=== PATIENT | female | born 1980 | race Caucasian/White ===

== ENCOUNTER 2017-11-07 20:58 | Inpatient (IN) | payer OTHER ==
[~2017-11-07] VITALS: Ht 162.6 cm; Wt 82.7 kg
[2017-11-07] MEDS: D5%-LACTATED RINGERS 1,000 ML IV SCH (08:15)
[2017-11-07] MEDS ORDERED: OXYTOCIN 30U/ 0.9% NaCL 500ML 500 ML IV ONE (21:02)
[2017-11-07] MEDS ORDERED: OXYTOCIN 30U/ 0.9% NaCL 500ML 500 ML IV PRN (21:02)
[2017-11-07] MEDS ORDERED: OXYTOCIN 30U/ 0.9% NaCL 500ML 500 ML ONE (21:13)
[2017-11-07] MEDS ORDERED: MISOPROSTOL 200 MCG TABLET ONE (21:13)
[2017-11-07] MEDS ORDERED: FENTANYL PF 100 MCG/2ML IV PRN (21:30)
[2017-11-07] MEDS ORDERED: SODIUM CITRATE/CITRIC ACID 30 ML UDC PO PRN (21:30)
[2017-11-07] MEDS ORDERED: TERBUTALINE 1 MG/ML, 1ML IVPush PRN ×2 (21:30)
[2017-11-07] MEDS ORDERED: METOCLOPRAMIDE 5 MG/ML, 2ML IVPush PRN (21:30)
[2017-11-07] MEDS ORDERED: FENTANYL PF 100 MCG/2ML IVPush PRN (21:30)
[2017-11-07] MEDS: LACTATED RINGERS 1,000 ML IV SCH (22:05)
[2017-11-07 22:51] LABS: BASOPHILS # (AUTO) 0.05 x10^3/uL (0-0.1); BASOPHILS % (AUTO) 0 % (0-1); EOSINOPHILS # (AUTO) 0.05 x10^3/uL (0-0.4); EOSINOPHILS % (AUTO) 0 % (1-7); LYMPHOCYTES # (AUTO) 1.89 x10^3/uL (1-3.4); LYMPHOCYTES % (AUTO) 11 % (22-44); MD NO; MEAN CORPUSCULAR HGB CONC 34.8 g/dL (32.4-35.8); MEAN CORPUSCULAR VOLUME 100.5 fL (80-100); MEAN PLATELET VOLUME 7.8 fL (7.4-10.4); MONOCYTES # (AUTO) 1.03 x10^3/uL (0.2-0.8); MONOCYTES % (AUTO) 6 % (2-9); NEUTROPHILS # (AUTO) 13.58 x10^3/uL (1.8-6.8); NEUTROPHILS % (AUTO) 82 % (42-75); PLATELET COUNT 235 x10^3/uL (130-400)
[2017-11-07] MEDS ORDERED: NEWBORN KIT ONE (23:58)
[2017-11-08] MEDS: LACTATED RINGERS 1,000 ML IV SCH ×4 (00:26→21:02)
[2017-11-08] MEDS ORDERED: FENTANYL/BUPIV./NS/PF 250 ML EPIDCONT SCH (02:04)
[2017-11-08] MEDS ORDERED: LACTATED RINGERS 1,000 ML IVBOLUS PRN (02:30)
[2017-11-08] MEDS ORDERED: FENTANYL PF 500 MCG, BUPIVACAINE/PF 0.5%, 30ML 62.5 ML in SODIUM CHLORIDE 0.9% 177.5 ML EPIDCONT SCH (02:30)
[2017-11-08] MEDS ORDERED: BUPIVACAINE 0.25% ONE (02:38)
[2017-11-08] MEDS ORDERED: ONDANSETRON 2MG/ML, 2ML ONE ×2 (04:27→19:57)
[2017-11-08] MEDS: ONDANSETRON 2MG/ML, 2ML IVPush PRN ×2 (04:30→19:58)
[2017-11-08] MEDS ORDERED: CALCIUM CARBONATE 500 MG TAB.CHEW ONE ×2 (04:37→15:44)
[2017-11-08] MEDS: CALCIUM CARBONATE 500 MG TAB.CHEW PO PRN ×2 (04:39→15:45)
[2017-11-08] MEDS: D5%-LACTATED RINGERS 1,000 ML IV SCH ×2 (05:02→13:02)
[2017-11-08] MEDS ORDERED: OXYTOCIN 30U/ 0.9% NaCL 500ML 500 ML ONE (14:09)
[2017-11-08] MEDS ORDERED: MISOPROSTOL 200 MCG TABLET ONE (22:28)
[2017-11-09] MEDS: LACTATED RINGERS 1,000 ML IV SCH ×4 (00:28→15:25)
[2017-11-09] MEDS ORDERED: SODIUM CITRATE/CITRIC ACID 30 ML UDC ONE ×2 (04:34→05:31)
[2017-11-09] MEDS ORDERED: METOCLOPRAMIDE 5 MG/ML, 2ML ONE ×2 (04:34→05:31)
[2017-11-09] MEDS ORDERED: LACTATED RINGERS 1,000 ML IV SCH ×2 (05:25→06:46)
[2017-11-09] MEDS ORDERED: WATER-INJECTION,STERILE 10 ML IV ONE (05:29)
[2017-11-09] MEDS ORDERED: CEFAZOLIN 1,000 MG ONE (05:29)
[2017-11-09] MEDS ORDERED: ONDANSETRON 2MG/ML, 2ML ONE (05:29)
[2017-11-09] MEDS ORDERED: OXYTOCIN 10 UNITS/ML, 1ML ONE (05:29)
[2017-11-09] MEDS ORDERED: KETOROLAC 30 MG/1 ML ONE (05:29)
[2017-11-09] MEDS ORDERED: DEXAMETHASONE 4 MG/ML, 1ML ONE (05:29)
[2017-11-09] MEDS ORDERED: morphine SULFATE 10 MG/ML, 1ML IVPush PRN ×2 (05:30)
[2017-11-09] MEDS ORDERED: METHYLERGONOVINE 0.2 MG/ML IM PRN (05:30)
[2017-11-09] MEDS ORDERED: morphine SULFATE/PF 0.5 MG/ML, 10ML ONE (05:30)
[2017-11-09] MEDS ORDERED: ACETAMINOPHEN 325 MG TABLET PO PRN (05:30)
[2017-11-09] MEDS ORDERED: MISOPROSTOL 200 MCG TABLET PR PRN (05:30)
[2017-11-09] MEDS ORDERED: CARBOPROST TROMETHAMINE 250 MCG/ML, 1ML IM PRN (05:30)
[2017-11-09] MEDS ORDERED: ONDANSETRON 2MG/ML, 2ML IV PRN (05:30)
[2017-11-09] MEDS ORDERED: IBUPROFEN 800 MG TABLET PO PRN (05:30)
[2017-11-09] MEDS ORDERED: MIDAZOLAM 1 MG/ML, 2ML ONE (05:45)
[2017-11-09] MEDS ORDERED: FENTANYL/BUPIV./NS/PF 250 ML EPIDCONT SCH (06:46)
[2017-11-09] MEDS ORDERED: LACTATED RINGERS 1,000 ML IVBOLUS PRN (07:00)
[2017-11-09] MEDS ORDERED: FENTANYL PF 500 MCG, BUPIVACAINE/PF 0.5%, 30ML 62.5 ML in SODIUM CHLORIDE 0.9% 177.5 ML EPIDCONT SCH (07:00)
[2017-11-09] MEDS ORDERED: HYDROmorphone 2 MG/ML, 1ML ONE (07:17)
[2017-11-09] MEDS ORDERED: HYDROmorphone 2 MG/ML, 1ML IVPush ONE (07:30)
[2017-11-09] MEDS ORDERED: OXYcodone/APAP 5/325MG TABLET ONE (08:10)
[2017-11-09] MEDS: OXYcodone/APAP 5/325MG TABLET PO PRN ×2 (08:11→15:09)
[2017-11-09] MEDS: OXYTOCIN 30U/ 0.9% NaCL 500ML 500 ML IV SCH ×2 (08:13→15:25)
[2017-11-09 08:30] VITALS: BP 110/72
[2017-11-09] MEDS: PRENATAL VIT/IRON/FA 1 EACH TABLET PO SCH (09:00)
[2017-11-09] MEDS: KETOROLAC 30 MG/1 ML IVPush SCH ×2 (12:16→18:21)
[2017-11-09 12:30] VITALS: BP 107/68
[2017-11-09 14:09] LABS: MD YES; MEAN CORPUSCULAR HEMOGLOBIN 35.1 pg (27.0-34.8); MEAN CORPUSCULAR HGB CONC 34.7 g/dL (32.4-35.8); MEAN CORPUSCULAR VOLUME 101.2 fL (80-100); PLATELET COUNT 211 x10^3/uL (130-400); RED BLOOD COUNT 3.16 x10^6/uL (3.82-5.3); RED CELL DISTRIBUTION WIDTH 13.9 % (9.6-15.2)
[2017-11-09 14:11] LABS: BAND#(MANUAL) 1.32 x10^3/uL; BANDS%(MANUAL) 5 % (0-7); LYMPH#(MANUAL) 1.32 x10^3/uL (1-3.4); LYMPHS% (MANUAL) 5 % (22-44); MONOS#(MANUAL) 1.58 x10^3/uL (0.3-2.7); MONOS% (MANUAL) 6 % (2-9); SEG#(MANUAL) 22.09 x10^3/uL (1.8-6.8); SEGS% (MANUAL) 84 % (42-75)
[2017-11-09 14:13] LABS: ANISOCYTOSIS 1+
[2017-11-09 14:22] LABS: <PLATELET ESTIMATE> ADEQUATE; <PLT MORPHOLOGY> NORMAL PLT MORPH
[2017-11-09 16:00] VITALS: BP 108/70
[2017-11-09 20:45] VITALS: BP 100/65
[2017-11-09 23:30] VITALS: BP 115/71
[2017-11-10] MEDS: OXYTOCIN 30U/ 0.9% NaCL 500ML 500 ML IV SCH ×3 (01:25→21:25)
[2017-11-10] MEDS: LACTATED RINGERS 1,000 ML IV SCH ×3 (01:25→21:25)
[2017-11-10] MEDS: KETOROLAC 30 MG/1 ML IVPush SCH ×4 (01:38→23:30)
[2017-11-10] MEDS ORDERED: IBUPROFEN 800 MG TABLET ONE (02:01)
[2017-11-10] MEDS: OXYcodone/APAP 5/325MG TABLET PO PRN ×4 (02:04→20:41)
[2017-11-10] MEDS: IBUPROFEN 800 MG TABLET PO PRN ×3 (02:33→20:41)
[2017-11-10 04:45] VITALS: BP 105/72
[2017-11-10 07:33] VITALS: BP 108/70
[2017-11-10] MEDS: PRENATAL VIT/IRON/FA 1 EACH TABLET PO SCH (09:04)
[2017-11-10] MEDS: DOCUSATE 100 MG CAPSULE PO PRN (09:04)
[2017-11-10 21:10] VITALS: BP 123/77
[2017-11-11] MEDS: OXYTOCIN 30U/ 0.9% NaCL 500ML 500 ML IV SCH ×2 (07:25→17:25)
[2017-11-11] MEDS: LACTATED RINGERS 1,000 ML IV SCH ×2 (07:25→17:25)
[2017-11-11] MEDS: OXYcodone/APAP 5/325MG TABLET PO PRN ×2 (07:27→18:05)
[2017-11-11] MEDS: IBUPROFEN 800 MG TABLET PO PRN ×2 (07:28→18:05)
[2017-11-11] MEDS: DOCUSATE 100 MG CAPSULE PO PRN ×2 (07:28→20:32)
[2017-11-11] MEDS: PRENATAL VIT/IRON/FA 1 EACH TABLET PO SCH (07:28)
[2017-11-11 07:36] VITALS: BP 124/83
[2017-11-11 20:05] VITALS: BP 135/86
[2017-11-12] MEDS: OXYcodone/APAP 5/325MG TABLET PO PRN (00:30)
[2017-11-12] MEDS: LACTATED RINGERS 1,000 ML IV SCH (03:25)
[2017-11-12] MEDS: OXYTOCIN 30U/ 0.9% NaCL 500ML 500 ML IV SCH (03:25)
[2017-11-12] MEDS: IBUPROFEN 800 MG TABLET PO PRN (04:16)
[2017-11-12] MEDS ORDERED: OXYC-302 PO (08:45)
[2017-11-12] MEDS ORDERED: SENN-52 PO (08:46)
[2017-11-12] MEDS ORDERED: IBUP-1223 PO (08:46)
[2017-11-12] MEDS ORDERED: PREN1TAB60 PO (08:47)
[2017-11-12 08:49] VITALS: BP 120/77
[2017-11-12] MEDS: PRENATAL VIT/IRON/FA 1 EACH TABLET PO SCH (09:00)
[2017-11-12] MEDS: DOCUSATE 100 MG CAPSULE PO PRN (09:06)
[2017-11-14] MEDS ORDERED: IBUPROFEN 800 MG TABLET PO PRN (12:00)
== END 2017-11-12 11:13 | disposition home or self-care (01) | DRG 766 ==
LOC: LDIP 20:58 → 2NW 11-09 08:20
PROVIDERS: ADMIT Obstetrics & Gynecology; ATTEND Obstetrics & Gynecology
PROC: 10D00Z1 Extraction of Products of Conception, Low, Open Approach (ICD-10-PCS; principal; 2017-11-09)
DX: O48.0 Post-term pregnancy (principal); O33.9 Maternal care for disproportion, unspecified; O62.1 Secondary uterine inertia; O69.81X0 Labor and delivery complicated by cord around neck, without compression, not applicable or unspecified; Z3A.40 40 weeks gestation of pregnancy; Z37.0 Single live birth
CPT/HCPCS: 36415; J7121; 82803; 85025; 86850; 86900; J0690; J1100; J1170; J1885; J2250; J2274; J2405; J3010; J3490; J2590; J7050; J7120